=== PATIENT | male | born 2000 | race Two or more races ===

== ENCOUNTER 2023-04-03 17:59 | Emergency (ER) | payer MEDICARE, OTHER ==
[~2023-04-03] VITALS: Ht 177.8 cm; Wt 68.1 kg
[2023-04-03] MEDS ORDERED: IBUP-1456 PO (22:09)
[2023-04-03 22:12] VITALS: BP 130/88; PULSE 90; RESP 98; TEMP 98.3; O2SAT 98
== END 2023-04-03 22:21 | disposition home or self-care (01) ==
LOC: EDBD 17:59 → ER 17:59
DX: R51.9 Headache, unspecified (principal); M54.2 Cervicalgia; J45.909 Unspecified asthma, uncomplicated; V43.52XA Car driver injured in collision with other type car in traffic accident, initial encounter; Y93.89 Activity, other specified; Y92.89 Other specified places as the place of occurrence of the external cause; Y99.8 Other external cause status
CPT/HCPCS: 70450; 72125